=== PATIENT | female | born 1930 | race Caucasian/White ===

== ENCOUNTER 2019-05-14 06:17 | Day surgery (SDC) | payer MEDICARE, OTHER ==
[~2019-05-14] VITALS: Ht 160 cm; Wt 65.9 kg
[2019-05-14 06:39] LABS: BASOPHILS 0.3 % (0-2); EOSINOPHILS 4.6 % (0-7); HEMOGLOBIN 14.6 g/dL (12-16); IMMATURE GRANULOCYTES 0.2 % (0-5); LYMPHOCYTES 34.6 % (15-50); MCH 31.2 pg (26.0-34.0); MCV 91.9 fL (80.0-100.0); MEAN PLATELET VOLUME 10.4 fL (7.4-10.4); MONOCYTES 11.4 % (2-11); NEUTROPHILS 48.9 % (40-80); PLATELET COUNT 202 10x3/uL (130-400); RBC 4.68 10x6/uL (4.00-5.40); RDW 12.7 % (11.5-14.5); WBC 6.2 10x3/uL (4.8-10.8)
[2019-05-14 07:09] LABS: ANION GAP 11.9 mmol/L (8-16); CALCIUM 9.7 mg/dL (8.5-10.1); CARBON DIOXIDE 30.9 mmol/L (21.0-32.0); CREATININE - SERUM 1.4 mg/dL (0.6-1.3); POTASSIUM - SERUM 3.8 mmol/L (3.5-5.1)
[2019-05-14] MEDS ORDERED: TOPROL XL25 MG PO (07:12)
[2019-05-14] MEDS ORDERED: CARDIZEM30 MG PO (07:12)
[2019-05-14] MEDS ORDERED: FUROSEMIDE20 MG PO (07:13)
[2019-05-14] MEDS ORDERED: TEMAZEPAM30 MG PO (07:13)
[2019-05-14] MEDS ORDERED: COUMADIN6 MG PO (07:13)
[2019-05-14] MEDS ORDERED: MURO-128 OPTH3.5 GM EACH EYE (07:14)
[2019-05-14 07:16] LABS: INR 1.19 (0.85-1.17); PROTIME 14.6 SECONDS (11.6-15.0)
[2019-05-14 07:17] LABS: APTT 29.6 SECONDS (22.8-39.4)
[2019-05-14 07:22] VITALS: BP 179/75; Ht 160 cm; Wt 65.9 kg
--- NOTE | 2019-05-14 09:05 | NUR ---
DC INSTRUCTIONS GIVEN TO PT/FAMILY. STATE UNDERSTANDING DC'D IV CATH FULLY INTACT.
--- NOTE | 2019-05-14 09:09 | NUR ---
PT LEFT UNIT VIA WC AT 0910
--- NOTE | 2019-05-15 15:18 | OP ---
PATIENT NAME: RADHA DALTON MEDICAL RECORD: [id number] :34 LOCATION:[facility] ADMISSION DATE: SURGEON: ENDY GILBERT DO DATE OF OPERATION: 05/14/2019 PROCEDURE: EGD with balloon dilation and biopsies. INDICATIONS FOR PROCEDURE: Abnormal MRI scan showing thickening of the distal esophagus as well as heartburn. SCOPE: Olympus video gastroscope. MEDICATIONS: Propofol 110 mg IV per anesthesia. ESTIMATED BLOOD LOSS: Minimal. COMPLICATIONS: None. FINDINGS: Informed consent was given. The patient was made comfortable with the above medication. After reaching an adequate level of sedation by slow IV push, the patient was placed on her left side. The endoscope was advanced under direct visualization through the mouth to the second portion of the duodenum. The upper, middle, and lower thirds of the esophagus appeared normal. 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 Cold forceps biopsies were taken at the Z line to look for Devine esophagus and confirmed no dysplasia, which there was none by endoscopic appearance. At the GE junction, there was also a Schatzki ring, which was approximately 14 mm in diameter. The endoscope traversed the site into a [id number] size hiatal hernia. There were no associated ulcers or other findings with this hernia. The endoscope was advanced into the stomach and retroflexed to view the cardia, which again revealed the hernia itself. The fundus appeared normal as did the body, antrum, and prepyloric regions of the stomach. Random cold forceps biopsies were taken to submit for histopathology and to rule out the presence of H. pylori. The endoscope was advanced into the duodenum, which appeared normal down to the second portion. The endoscope was withdrawn back into the stomach and a 16-18 mm CRE dilating balloon was placed through the working channel of the endoscope. The endoscope was withdrawn in the esophagus and the Schatzki's ring was dilated up to 18 mm successfully. The endoscope was then withdrawn from the patient. The patient tolerated the procedure well and there were no complications. IMPRESSION: 1. 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 Biopsies pending. 2. Schatzki's ring dilated to 18 mm successfully. 3. Small to moderate size sliding type hiatal hernia without associated ulcerations or other abnormalities. PLAN AND RECOMMENDATIONS: 1. Discharge home when recovery parameters are met. 2. Follow up biopsy specimen results. 3. GERD diet and reflux precautions. 4. Continue current medications. 5. Further evaluations of the esophagus will be dependent on results of biopsy OPERATIVE REPORT [id number] RADHA DALTON specimens. If Devine's mucosa is present, a recall EGD can be considered in 2 years. TRANSINT:[id number] Voice Confirmation ID: [id number] DOCUMENT ID: [id number] ENDY GILBERT DO at 1518 CC: [id number] DICTATION DATE: 05/14/19 0836 [employer]: 05/14/19 0846 [facility] 05/14/19 [id number] [place] [address]
== END 2019-05-14 09:10 | disposition home or self-care (01) ==
LOC: D.OPS 06:17
PROVIDERS: Anesthesiology; ATTEND Internal Medicine Gastroenterology
DX: K21.0 Gastro-esophageal reflux disease with esophagitis (principal); K22.2 Esophageal obstruction; K44.9 Diaphragmatic hernia without obstruction or gangrene; Z01.812 Encounter for preprocedural laboratory examination